=== PATIENT | male | born 2000 | race Caucasian/White ===

== ENCOUNTER 2019-01-02 18:31 | Emergency (ER) | payer OTHER ==
[2019-01-02 19:09] LABS: BILIRUBIN,URINE NEGATIVE (NEGATIVE); GLUCOSE, URINE (UA) NEGATIVE (NEGATIVE); KETONES,URINE (UA) NEGATIVE (NEGATIVE); LEUKOCYTE ESTERASE, URINE NEGATIVE (NEGATIVE); NITRITE,URINE NEGATIVE (NEGATIVE); OCCULT BLOOD,URINE LARGE (NEGATIVE); PROTEIN,URINE 100 mg/dL (NEGATIVE); UROBILINOGEN,URINE 1 (NORMAL) E.U./dL (NORMAL)
[2019-01-02 19:26] LABS: CLARITY,URINE SL. CLOUDY (CLEAR)
[2019-01-02 19:49] LABS: BACTERIA,URINE None Seen /HPF (None Seen); SQUAMOUS EPITHELIAL CELL,UR RARE Squamous (<= Few); YEAST,URINE PRESENT
--- NOTE | 2019-01-02 21:01 | ED Physician Documentation ---
PD HPI MALE - Stated complaint Stated Complaint: MALE - Chief complaint Chief Complaint: UTI - History obtained from History obtained from: Patient - History of Present Illness Timing - onset: How many days ago (2-3) Timing - duration: Days Timing - details: Gradual onset, Waxing and waning Pain level max: 0 Pain level now: 0 Associated symptoms: Hematuria. No: Dysuria, Discharge, Genital sore / lesion, Testiclar pain PD HPI MALE CONTRIB FACTORS: Sexually active Similar symptoms before: Has not had sx before Recently seen: Not recently seen - Additional information Additional information: c/o 2-3 days of "musty smell" to urine, developed hematuria earlier today. He is sexually active. Denies dysuria, denies discharge Review of Systems Constitutional: denies: Fever : reports: Hematuria. denies: Dysuria, Frequency, Discharge, Testicular pain Skin: denies: Rash PD PAST MEDICAL HISTORY - Past Medical History Past Medical History: No - Past Surgical History Past Surgical History: No - Allergies Allergies/Adverse Reactions: Allergies Allergy/AdvReac Type Severity Reaction Status Date / Time No Known Drug Allergies Allergy Verified 01/02/19 18:46 - Social History Does the pt smoke?: No Smoking Status: Never smoker Does the pt drink ETOH?: No Does the pt have substance abuse?: No - Immunizations Immunizations are current?: Yes - POLST Patient has POLST: No PD ED PE NORMAL - Vitals Vital signs reviewed: Yes - General General: Alert and oriented X 3, No acute distress, Well developed/nourished - Abdomen Abdomen: Soft, Non tender - Back Back: No CVA TTP Results - Vitals Vitals: Vital Signs - 24 hr 01/02/19 01/02/19 18:41 21:48 Temperature 37.2 C 36.7 C Heart Rate 54 L 53 L Respiratory 15 15 Rate Blood Pressure 110/70 138/71 H O2 Saturation 99 99 Oxygen O2 Source Room air - Labs Labs: Laboratory Tests 01/02/19 18:53 Urine Color YELLOW Urine Clarity SL. CLOUDY Urine pH 6.0 Ur Specific [place] >=1.030 H Urine Protein 100 H Urine Glucose (UA) NEGATIVE Urine Ketones NEGATIVE Urine Occult Blood LARGE H Urine Nitrite NEGATIVE Urine Bilirubin NEGATIVE Urine Urobilinogen 1 (NORMAL) Ur Leukocyte Esterase NEGATIVE Urine RBC 6-10 H Urine WBC 0-3 Ur Squamous Epith Cells RARE Squamous Urine Bacteria None Seen Urine Yeast PRESENT Ur Microscopic Review INDICATED Urine Culture Comments NOT INDICATED PD MEDICAL DECISION MAKING - ED course Complexity details: reviewed results, considered differential, d/w patient Departure - Departure Disposition: 01 Home, Self Care Clinical Impression: Urethritis Hematuria Qualifiers: Hematuria type: gross Qualified Code(s): R31.0 - Gross hematuria Condition: Good Instructions: ED Hematuria, ED Urethritis Infec Vs Inflam Male Follow-Up: DANNIELLE Son [Provider Group] Discharge Date/Time: 01/02/19 21:49
[2019-01-02] MEDS ORDERED: AZITHROMYCIN 250 MG TABLET PO STA (21:21)
[2019-01-02] MEDS ORDERED: cefTRIAXone 250 MG VIAL IM STA (21:21)
[2019-01-02] MEDS ORDERED: LIDOCAINE 1% 2 ML VIAL MC ONE (21:21)
[2019-01-02 21:48] VITALS: BP 138/71
[2019-01-03 20:25] LABS: TRICHOMONAS VAGINALIS DNA NEGATIVE (NEGATIVE)
== END 2019-01-02 21:49 | disposition home or self-care (01) ==
LOC: ED 18:31
DX: N34.2 Other urethritis (principal); R31.0 Gross hematuria
CPT/HCPCS: 81001; 87491; 87591; 87661; 96372; 99282; 99283; A9270; 81003; 87086